=== PATIENT | female | born 1995 | race Caucasian/White ===

== ENCOUNTER 2020-05-08 20:04 | Inpatient (IN) | payer MEDICAID, SELFPAY ==
[2020-05-08 20:15] VITALS: BP 126/89; PULSE 80; RESP 16; TEMP 36.6; O2SAT 98
[2020-05-08] MEDS: OLANZapine 10 mg TABLET PO (21:24)
[2020-05-08 22:00] VITALS: BP 126/89; PULSE 80; RESP 16; TEMP 36.6
[2020-05-08 23:14] VITALS: BMI 10.8
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
[2020-05-09 06:00] VITALS: BP 117/72; PULSE 86; RESP 16; TEMP 36.6
[2020-05-09] MEDS: OLANZapine 10 mg TABLET PO (12:36)
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
[2020-05-09 14:00] VITALS: BP 85/51; PULSE 74; RESP 16; TEMP 37.2; O2SAT 96
[2020-05-09 14:43] LABS: Basophils # 0.1 10^3/uL (0.0-0.1); Basophils % 0.9 %; Eosinophils # 0.2 10^3/uL (0.0-0.8); Eosinophils % 2.2 %; Hematocrit 39.6 % (37.0-47.0); Hemoglobin 12.9 g/dL (11.5-15.3); Lymphocytes # 3.1 10^3/uL (0.8-4.8); Lymphocytes % 40.5 %; Mean Corpuscular HGB Conc 32.6 g/dL (30.0-36.0); Mean Corpuscular Hemoglobin 27.4 pg (28.0-34.0); Mean Corpuscular Volume 84.1 fL (81-99); Monocytes # 0.6 10^3/uL (0.2-0.9); Monocytes % 8.3 %; Neutrophils # 3.67 10^3/uL (1.8-7.7); Nucleated Red Blood Cells % 0 %; Platelet Count 442 10^3/cmm (130-400); Red Blood Count 4.71 10^6/uL (4.1-5.3); Red Cell Distribution Width 12.8 % (12.1-15.1); White Blood Count 7.7 10^3/uL (4.0-10.0)
[2020-05-09 15:20] LABS: Add Urine Microscopic? YES; Bilirubin Urine Neg (Negative); Blood Urine Neg (Negative); Glucose Urine UA Norm (Normal); Ketones Urine 1+ (Negative); Leukocyte Esterase Urine 2+ (Negative); Nitrate Urine Positive (Negative); Protein Urine Neg (Negative); Specific Gravity, Urine 1.025 (1.005-1.030); Urine Appearance Cloudy (CLEAR); Urine Color Yellow (Yellow); Urobilinogen Urine Norm (Negative); pH Urine 5 (5-7)
[2020-05-09 15:20] LABS: Folate Level 16.8 ng/mL (4.8-37.3)
[2020-05-09 15:21] LABS: Alanine Aminotransferase 55 U/L (0-33); Albumin Level 3.8 g/dL (3.5-5.2); Alkaline Phosphatase 67 IU/L (35-105); Aspartate Amino Transferase 78 U/L (0-32); Blood Urea Nitrogen 6 mg/dL (6-20); Carbon Dioxide 28 mmol/L (22-29); Chloride 102 mmol/L (98-107); Globulin 2.9 g/dL (1.3-4.6); Glomerular Filtration Rate 154.3 mL/min (90-130); Glucose 123 mg/dL (65-115); Osmolality Calculated 289 mOsm/kg (285-295); Sodium 140 mmol/L (136-145); Thyroid Stimulating Hormone 1.32 uIU/mL (0.27-4.20); Total Bilirubin 0.4 mg/dL (0.15-1.2); Total Protein 6.7 g/dL (6.6-8.7); Vitamin B12 1342 pg/mL (232-1245)
[2020-05-09 15:24] LABS: Bacteria Urine 3+ /hpf; Mucus Urine 1+ /hpf; Squamous Epithelial Cell Urine 0-4 /hpf (0-5); WBC Urine 40-55 /hpf (0-5)
[2020-05-09 15:25] LABS: Add Urine Culture? Yes
[2020-05-09 15:27] LABS: Erythrocyte Sedimentation Rate 11 mm/hr (0-15)
[2020-05-09] MEDS: OLANZapine 10 mg TABLET 20 MG PO (19:26)
[2020-05-09 19:42] VITALS: BP 101/68; PULSE 84; RESP 20; TEMP 36.7; O2SAT 95
[2020-05-10 06:00] VITALS: BP 97/61; PULSE 61; RESP 16; TEMP 37; O2SAT 97
[2020-05-10] MEDS: OLANZapine 10 mg TABLET PO (07:33)
[2020-05-10] MEDS: sulfamethoxazole-trimeth DS 160-800 mg Tablet 1 TAB PO ×2 (10:17→20:46)
--- NOTE | 2020-05-10 11:40 | P.PN_ITS ---
Subjective NPU Subjective: Interval history: Patient is much more engaged and interactive today during interview although frequently looking away and pausing requiring prompting Denies any current pentecostal themed delusions although when asked about her calling herself having she stated yes that she calls her self heaven but does not asked to be called this when referred to as Tracy throughout the interview per previous interview Denies any hallucinations, denies any current delusions but does recall some thoughts about thinking that she was going to be taken over by Satan Reports no mood symptoms, denies any depressed symptoms, denies any suicidal ideation, denies any irritability or anger and denies any homicidal ideation or thoughts about harming others Reports having a good appetite States that she slept well and feels rested Per nurse report, no interval behavioral disturbances, no episodes of physical agitation Mental Status Exam MSE Comments: Sitting up on her bed, tired appearing, appropriately dressed, interactive, requires some prompting for verbal responses otherwise good eye contact and participates in interview Psychomotor activity is neither increased nor decreased, no agitation Speech is low volume, normal rate, requires prompting to respond to questions, not pressured, fair articulation Okay, constricted affect, incongruent, not labile Alert, oriented to self and type of place, not to situation Memory and concentration are fair, requires occasional redirection to attend to interview Thought process, delayed, linear but brief Thought content, no reported delusions, does not appear to be attending to any internal stimuli and does not appear to be internally preoccupied, no suicidal or homicidal ideation Insight and judgment are limited Vitals/I&O/Wt Last Vital Signs Temp 98.6 F 05/10/20 06:00 Pulse 61 05/10/20 06:00 Resp 16 05/10/20 06:00 BP 97/61 05/10/20 06:00 Pulse Ox 97 05/10/20 06:00 Weight last 48 hrs Weight 29.484 kg Weight 29.484 kg Data NPU : 05/09/20 14:14 05/09/20 14:14 A&P Assessment and plan (1) Schizophrenia: Status: Acute Qualifiers: Schizophrenia type: unspecified Qualified Code(s): F20.9 - Schizophrenia, unspecified (2) Autistic disorder: Status: Acute Additional A&P Information Significantly improved mood and behavior today, improved psychotic symptoms, no stated delusions, does not appear to be attending to any internal stimuli, labs indicate UTI, no interval physical agitation or behavioral disturbances START Bactrim DS twice daily targeting UTI CONTINUE current medication, continue to monitor Attestations NPU Medical Necessity Statement*: Continues require psychiatric hospitalization for medication stabilization, coordination for safe discharge Coding Level of Care Code Acute Rotary Engraver for [facility] Diagnoses Schizophrenia F20.9 Schizophrenia type: unspecified Autistic disorder F84.0
[2020-05-10 14:00] VITALS: BP 100/62; PULSE 100; RESP 20; TEMP 36.3; O2SAT 96
[2020-05-10] MEDS: OLANZapine 10 mg TABLET 20 MG PO (20:46)
[2020-05-10 22:00] VITALS: BP 103/65; PULSE 86; RESP 16; TEMP 36.8; O2SAT 97
[2020-05-11 06:00] VITALS: BP 100/62; PULSE 75; RESP 16; TEMP 36.9; O2SAT 95
[2020-05-11] MEDS: OLANZapine 10 mg TABLET PO (07:44)
[2020-05-11] MEDS: sulfamethoxazole-trimeth DS 160-800 mg Tablet 1 TAB PO (07:44)
--- NOTE | 2020-05-11 09:51 | P.DS_ITS ---
Diagnoses at Discharge Discharge Diagnosis (1) Schizophrenia: Status: Acute Qualifiers: Schizophrenia type: unspecified Qualified Code(s): F20.9 - Schizophrenia, unspecified (2) Autistic disorder: Status: Acute Reason for Visit Reason for Visit: I am being taken over by [facility] 24 year old female with history of severe, autistic spectrum disorder, unclear psychiatric history with ongoing psychotic symptoms and worsening delusions with taoism themes. Patient continued to demonstrate psychotic signs and symptoms at the time of initial evaluation to include attending to internal stimuli and voicing taoism themed delusions although she did not demonstrate any physical agitation or combative behavior. Risperdal was discontinued from her recent psychiatric hospitalization and she was started on olanzapine 10 mg daily and 20 mg at bedtime with good effect and no report of any medication side effects. Patient quickly reconstituted with significantly diminished delusions after first dose as well as more organization in her speech and behavior with only residual appearance of attending to internal stimuli which resolved over another couple of doses. Patient denied any mood symptoms, denies any depressive symptoms and appears to be excited about discharge and denies any taoism themed delusions nor any perceptual disturbances. Patient tolerated medication changes well with no reports of any medication side effects. Patient participated in unit milieu with no reports of any behavioral disturbances. Patient was not suicidal or psychotic at the time of discharge and did not appear to pose an imminent threat of harm to self or others. Low to moderate risk of harm to self or others given patient's history of a thought disorder compounded by severe autistic disorder which ultimately elevates her risk at times given the potential for unexpected, impulsive behavior although patient is currently denying any suicidal ideation and currently denying any perceptual disturbances or delusions. Risk mitigation included psychiatric hospitalization for medication stabilization as well as coordination for post discharge care. Patient acknowledged the need to be compliant with her medication although this will likely be highly dependent on her caregiver as well as frequent follow-up for medication management as well as behavioral redirection. Mental Status Exam MSE Comments: Sitting on a bench near the nurses station, appropriately groomed and dressed, calm, cooperative, interactive, good eye contact Psychomotor activity is neither increased nor decreased, no agitation Speech is low volume, normal rate, not pressured, fair articulation I feel good, constricted affect, not labile Alert, oriented to self and type of place, not to situation Memory and concentration are fair per interview Thought process, delayed, linear but brief Thought content, no reported delusions, does not appear to be attending to any internal stimuli and does not appear to be internally preoccupied, no suicidal or homicidal ideation Insight and judgment are limited Discharge Data Data Completed and Pending: Pending at discharge Category Date Time Status Urine Culture [facility] 05/09/20 14:40 Results Vitals: Last Vital Signs Temp 98.4 F 05/11/20 06:00 Pulse 75 05/11/20 06:00 Resp 16 05/11/20 06:00 BP 100/62 05/11/20 06:00 Pulse Ox 95 05/11/20 06:00 Discharge Plan Discharge Patient Disposition: Home Condition: Stable Prescriptions: New olanzapine 10 mg Tablet 20 mg PO BEDTIME Qty: 30 RF: 0 olanzapine 10 mg Tablet 10 mg PO DAILY 30 Days RF: 0 sulfamethoxazole-trimethoprim 800-160 mg Tablet 1 tab PO 0900,2100 Qty: 20 RF: 0 Discontinued risperidone tablet 0.5 mg PO TID RF: 0 Discharge Orders: Discharge Order (Routine); Ordered 05/11/20 Ordered By: Nurys Alexander Referrals: [facility] [place] [facility] [Outside] (Complete intake paperwork and return to [facility]. This will allow her to be scheduled for an assessment to get outpatient services and an outpatient psychiatrist to continue her medications.) Discharge Diet: Regular Discharge Activity: Resume usual activity Discharge Attestations NPU Time Spent in Discharge Care*: greater than 30 min Status at Discharge: Cognitive status at discharge: moderately impaired cognition , Behavioral status at discharge: cooperative , Functional status at discharge: independent ambulation Overall status at discharge: patient is back to baseline Coding Level of Care Code Acute Sharepoint Consultant for [facility] Fwd Diagnoses Schizophrenia F20.9 Schizophrenia type: unspecified Autistic disorder F84.0
[2020-05-11 10:13] VITALS: BP 100/62; PULSE 75; RESP 16; TEMP 36.9; O2SAT 95
== END 2020-05-11 17:17 | disposition home or self-care (01) | DRG 885 ==
PROVIDERS: Admitting Provider Psychiatry & Neurology Psychiatry; Visit Provider Psychiatry & Neurology Psychiatry
DX: F20.9 Schizophrenia, unspecified (principal); F84.0 Autistic disorder
CPT/HCPCS: 36415; 80053; 81001; 82607; 82746; 84443; 85025; 85651; 87077; 87086; 87186

== ENCOUNTER 2020-11-09 13:20 | Inpatient (IN) | payer MEDICAID, SELFPAY ==
[2020-11-09 13:06] VITALS: BMI 26.4
[2020-11-09 14:00] VITALS: BP 114/78; PULSE 63; RESP 16; TEMP 36.9; O2SAT 99
[2020-11-09 20:55] VITALS: BP 107/72; PULSE 104; RESP 20; TEMP 37.1; O2SAT 98
[2020-11-10 06:00] VITALS: BP 93/60; PULSE 87; RESP 17; TEMP 36.7; O2SAT 99
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
--- NOTE | 2020-11-10 12:36 | NPU.GN ---
[facility] Unit Group Topic:Coping Skills General Mood of Group:Refused group.
[2020-11-10 14:00] VITALS: BP 110/60; PULSE 91; RESP 18; TEMP 36.3; O2SAT 98
[2020-11-10 20:12] VITALS: BP 116/76; PULSE 76; RESP 18; TEMP 37.1; O2SAT 98
[2020-11-11 06:00] VITALS: RESP 16
--- NOTE | 2020-11-11 06:38 | PC.NURSE ---
pt finally sleeping will collect vitals later/respirations were observed/alexy
[2020-11-11] MEDS: ARIPiprazole 10 mg Tablet PO (08:03)
[2020-11-11] MEDS: fluoxetine 20 mg Capsule PO (08:03)
[2020-11-11] MEDS: fluticasone nasal spray 16gm Btl 1 SPRAY INTRANASAL (08:03)
[2020-11-11] MEDS: OLANZapine 10 mg TABLET 20 MG PO ×2 (08:03→17:30)
[2020-11-11 14:00] VITALS: RESP 16; TEMP 36.4
[2020-11-11] MEDS: paliperidone palmitate 156 mg Syringe IM (14:21)
--- NOTE | 2020-11-11 17:37 | PM.NPN ---
Subjective NPU Subjective: Interval history: Patient presents today reporting that she is doing okay. She had her first dose of the medication and reports that she did not have any side effects to it. She denies any problems with the discontinuation of the Risperdal. She wonders if the medication is making her a little sleepy. We discussed the possibility of changing the dosing to nighttime if she still felt that way tomorrow. We discussed the fact that we are continuing to work on getting her placement and working with her mom about whether or not she can come home and there are places that we have contacted but no takers as of yet. Mental Status Exam MSE Comments: This is a well-nourished, well-developed, white female, in hospital scrubs with adequate grooming and eye contact. No abnormal movements. Cooperative with exam in no acute distress. Speech was slightly decreased rate and volume, and very child-like. Mood described as tired; affect congruent. Thought process, organized. Thought content: patient denied any suicidal or homicidal ideation, there were no delusions reported or noted, patient denied any auditory or visual hallucinations. Attention, concentration, and memory appear intact but were not formally tested. She is alert and oriented times three. Insight and judgment are limited, impulse control limited, intellectual ability limited to impaired. Vitals/I&O/Wt Last Vital Signs Temp 98.8 F 11/11/20 22:00 Pulse 75 11/11/20 22:00 Resp 18 11/11/20 22:00 BP 96/59 11/11/20 22:00 Pulse Ox 98 11/11/20 22:00 A&P Additional A&P Information (1) Autistic disorder: (2) Schizophrenia: (3) Intellectual disability: This is a 25-year-old, white female, with a long history of intellectual disability, trauma, and mental health treatment, who presents reportedly off medication with not being the best historian due to her cognitive limitation, who endorses being open to restarting medication and a plan to ultimately discontinue the Risperdal and start Abilify. RECOMMENDATION AND PLAN: 1. Continue current medication. 2. Encourage individual, group, and milieu therapy. 3. Continue q-15 minute checks for safety. . Involuntary Hold Information 96 Hour Hold: 96 Hour Involuntary Admission: No Attestations NPU Medical Necessity Statement*: Inpatient hospitalization is medically necessary and the clinically appropriate intervention, at this time. We will monitor medications and make changes as indicated. Likely length of stay is 3-5 days. Coding Level of Care Code Acute Technical Specialist for [facility]
[2020-11-11 22:00] VITALS: BP 96/59; PULSE 75; RESP 18; TEMP 37.1; O2SAT 98
[2020-11-12 06:00] VITALS: RESP 19
[2020-11-12] MEDS: fluoxetine 20 mg Capsule PO (08:28)
[2020-11-12] MEDS: OLANZapine 10 mg TABLET 20 MG PO ×2 (08:28→17:15)
[2020-11-12] MEDS: ARIPiprazole 10 mg Tablet PO (08:28)
--- NOTE | 2020-11-12 09:35 | PC.NURSE ---
Patient remains incontinent and has to be reminded several times to change her depends.
[2020-11-12] MEDS: fluticasone nasal spray 16gm Btl 1 SPRAY INTRANASAL (10:08)
--- NOTE | 2020-11-12 12:57 | PM.NPN ---
Subjective NPU Subjective: Interval history: Patient presents today reporting that she feels like the medication might be helping but she is still feeling really tired. We discussed the risk benefits and alternatives of changing the Abilify to 10 mg p.o. nightly and she understood and agreed to proceed as is documented in this note. She was very inquisitive about the situation with her mother and going home. We discussed again that we do in fact have some feelers out there. We had one refusal but one that is still quite active we will try to pursue this 1 and avoid question of home but we have also discussed that were in conversation with mom that it may be that in the next couple days as she gets well that she would leave and go home while she is awaiting the opportunities that we pursue. Mental Status Exam MSE Comments: This is a well-nourished, well-developed, white female, in hospital scrubs with adequate grooming and eye contact. No abnormal movements. Cooperative with exam in no acute distress. Speech was slightly decreased rate and volume, and very child-like. Mood described as still sleepy; affect congruent. Thought process, organized. Thought content: patient denied any suicidal or homicidal ideation, there were no delusions reported or noted, patient denied any auditory or visual hallucinations. Attention, concentration, and memory appear intact but were not formally tested. She is alert and oriented times three. Insight and judgment are limited, impulse control limited, intellectual ability limited to impaired. Vitals/I&O/Wt Last Vital Signs Temp 98.8 F 11/11/20 22:00 Pulse 75 11/11/20 22:00 Resp 18 11/11/20 22:00 BP 96/59 11/11/20 22:00 Pulse Ox 98 11/11/20 22:00 A&P Additional A&P Information (1) Autistic disorder: (2) Schizophrenia: (3) Intellectual disability: This is a 25-year-old, white female, with a long history of intellectual disability, trauma, and mental health treatment, who presents reportedly off medication with not being the best historian due to her cognitive limitation, who endorses being open to restarting medication and a plan to ultimately discontinue the Risperdal and start Abilify. RECOMMENDATION AND PLAN: 1. Continue current medication. 2. Encourage individual, group, and milieu therapy. 3. Continue q-15 minute checks for safety. 4. We will work with treatment team for safe discharge plan and location. Involuntary Hold Information 96 Hour Hold: 96 Hour Involuntary Admission: No Attestations NPU Medical Necessity Statement*: Inpatient hospitalization is medically necessary and the clinically appropriate intervention, at this time. We will monitor medications and make changes as indicated. Likely length of stay is 2-4 days. Coding Level of Care Code Acute Materials Scientist for [facility]
[2020-11-12 14:00] VITALS: BP 99/60; PULSE 118; RESP 18; TEMP 36.6; O2SAT 98
[2020-11-12 20:21] VITALS: BP 109/72; PULSE 90; RESP 18; TEMP 36.9; O2SAT 97
[2020-11-13 06:00] VITALS: BP 109/72; PULSE 90; RESP 18; TEMP 36.9; O2SAT 97
[2020-11-13] MEDS: fluoxetine 20 mg Capsule PO (07:56)
[2020-11-13] MEDS: OLANZapine 10 mg TABLET 20 MG PO ×2 (07:56→18:28)
[2020-11-13] MEDS: fluticasone nasal spray 16gm Btl 1 SPRAY INTRANASAL (09:53)
[2020-11-13 14:00] VITALS: BP 109/67; PULSE 100; RESP 17; TEMP 36.5; O2SAT 99
--- NOTE | 2020-11-13 14:01 | PM.NDC ---
Diagnoses at Discharge Discharge Diagnosis (1) Autistic disorder: Status: Acute (2) Schizophrenia: Status: Acute Qualifiers: Schizophrenia type: unspecified Qualified Code(s): F20.9 - Schizophrenia, unspecified (3) Intellectual disability: Status: Acute Reason for Visit Reason for Visit: hallucination Brief History: History of Present Illness Tracy Robledo is a 25 year old female who presented to the outside hospital reporting hallucinations. There was a conflict in the home with her foster mother of unclear etiology at the outpatient hospital. There was reportedly ?out of control behavior? in the home making her foster parents not feel safe, having her inside the home. She presents today reporting that she this is her probably fifth inpatient hospitalization. She denies outpatient services and she denied medications however, it appears that she is behind in her Invega injection and is unclear about collateral information if she has in fact stopped her medications. She denies cigarettes, alcohol, marijuana, or any other illicit drugs. She has never been to rehab, never had a DUI. She denies any history of suicide attempts. When asked what the commotion was in her home, she reports that she was ?acting psycho.? She reports she was in her house, and she was running around naked. She gave no clear reason for why she was running around naked. She was not mad and essentially answered no to all the reasons this automotive service writer could come up with for why she might have done that. Eventually she reported that she was feeling hot, and she wanted to cool off, but we both agreed that the answer to that would not be running around the house naked. She reports she has been off her medications, and we discussed the different medications that we had notation of her having. She reports that she is on Risperdal, but she does not like how that works and makes her feel. We discussed the risks, benefits, and alternatives of continuing most of the medications or restarting them and initiating Abilify in the morning tomorrow, and she understood and agreed to proceed as is documented in this note. PSYCHIATRIC HISTORY: As above. SUBSTANCE ABUSE HISTORY: As above. FAMILY HISTORY: She reports she is adopted, and she has limited memory of her biological family, but she denied any mental health issues on either side of the family that she is aware of but did endorse addiction likely on both sides of the family. She is unaware of any suicide attempts or completions. DEVELOPMENTAL HISTORY: She denied any known issues with her or delivery, and reports she learned to walk and talk and met her developmental milestones on time, but this is questionable. She does endorse that she did require speech therapy, learning support, emotional support, and special education classes once she entered school and throughout her schooling. PSYCHOSOCIAL HISTORY: She reports her parents were not together when she was born and that she is the only product of that union. She believes that she knows that she has siblings out there somewhere, but she is not sure how many, and which are attributed to which parent. She reports that she was taken away from her family at eleven months. She denies knowledge of her childhood prior to her adoption. She denies emotional, physical, or sexual abuse, but then seemed unsure about the sexual abuse question. She graduated from high school. She essentially identified being asexual and denied having any real relationships, but then said that she use to have a boyfriend, but it was very short-lived. She has never been , she has never had children, she has never been in the , and she endorses believing in God. 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 She currently livers in the house with her foster mother, a roommate, and her sister she reports, but she seemed somewhat confused as to whether or not that was a biological sibling or not. LEGAL HISTORY: Denied. MEDICAL HISTORY: She denies any specific issues. Hospital Course Hospital Course She slowly acclimated to the individual, group and milieu therapies provided. We discontinued her Risperdal and started her on Abilify which she endorsed improvement. She was limited in her intellectual engagement due to longstanding intellectual disability and there are some challenges and conflicts in the home with making unclear whether her presentation represents true issues with her symptom cluster or a reflection on volume or conflict in the home. She had mild improvement and was able to contract for safety prior to discharge. At the outside hospital, patient had routine laboratory studies which were within normal limits except for few outliers. Additionally there was a general medical evaluation which was also within normal limits and revealed no new acute processes. Discharge Summary: At the time of discharge, she denied credible psychosis or lethality. Mood and anxiety were well managed. Patient endorsed a plan to follow-up with the aftercare recommendations of the treatment team. Patient was evaluated and deemed to be absent credible lethality, and had achieved the maximum benefit from an inpatient hospitalization, so was discharged. Involuntary Hold Information 96 Hour Hold: 96 Hour Involuntary Admission: No Mental Status Exam MSE Comments: This is a well-nourished, well-developed, white female, in hospital scrubs with adequate grooming and eye contact. No abnormal movements. Cooperative with exam in no acute distress. Speech was slightly decreased rate and volume, and very child-like. Mood described as okay; affect congruent. Thought process, organized. Thought content: patient denied any suicidal or homicidal ideation, there were no delusions reported or noted, patient denied any auditory or visual hallucinations. Attention, concentration, and memory appear intact but were not formally tested. She is alert and oriented times three. Insight and judgment are limited, impulse control limited, intellectual ability limited to impaired. Discharge Data Vitals: Last Vital Signs Temp 98.4 F 11/13/20 06:00 Pulse 90 11/13/20 06:00 Resp 18 11/13/20 06:00 BP 109/72 11/13/20 06:00 Pulse Ox 97 11/13/20 06:00 Discharge Plan Discharge Patient Disposition: Home Condition: Stable Prescriptions: New aripiprazole 10 mg Tablet 10 mg PO BEDTIME 30 Days Qty: 30 RF: 1 Continued fluoxetine [Prozac] 20 mg capsule 20 mg PO DAILY RF: 0 fluticasone propionate 50 mcg/actuation spray,suspension 1 spray INTRANASAL DAILY RF: 0 olanzapine 10 mg tablet 20 mg PO BID RF: 0 Changed Invega Sustenna 156 mg/mL syringe 156 mg IM DIRECTED 30 Days Qty: 1 RF: 1 Discontinued risperidone [Risperdal] 1 mg tablet 1 mg PO BID RF: 0 Discharge Orders: Discharge Order (Routine); Ordered 11/13/20 Ordered By: Lucius Hamm Referrals: [facility] [Other] - 11/20/20 11:00 am (Invega injection appointment with a nurse on 11/20/20 @ 11am. Please be sure to bring Invega prescription to this appointment. You will need to establish care with a medication provider to follow up with Invega injections. After your appointment with [facility] on 11/30/20 you will likely be set up with a medication provider that will be able to follow up. ) Sima Cano LPC [Therapist] - 11/17/20 12:00 pm (Therapy appointment with Sima Cano on 11/17/20 @ 12:00pm at the [facility] office, address: [address] [facility] [address]) Johanny Flood MD [[place]] - 11/30/20 10:00 am (Psych eval with Dr. Flood on 11/30/20 @ 10:00am at the [facility] office at [address] [address]) Discharge Diet: Regular Discharge Activity: Resume usual activity Patient Instructions: Aripiprazole (By mouth), Opioid Safety Discharge Attestations NPU Time Spent in Discharge Care*: less than 30 min Specific Discharge Activities: Specific discharge activities: educating patient, discussing with case loader operator/social workers/dc planners, documenting/other paperwork and evaluating patient/reviewing data Status at Discharge: Cognitive status at discharge: moderately impaired cognition, Behavioral status at discharge: cooperative, Coding Level of Care Code Acute [facility] DC note Diagnoses Autistic disorder F84.0 Schizophrenia F20.9 Schizophrenia type: unspecified Intellectual disability F79
[2020-11-13 14:04] VITALS: BP 109/72; PULSE 90; RESP 18; TEMP 36.9; O2SAT 97
== END 2020-11-13 18:56 | disposition home or self-care (01) | DRG 885 ==
PROVIDERS: Admitting Provider Psychiatry & Neurology Psychiatry; Visit Provider Psychiatry & Neurology Psychiatry
DX: F20.9 Schizophrenia, unspecified (principal); F84.0 Autistic disorder; F79 Unspecified intellectual disabilities; Z81.4 Family history of other substance abuse and dependence
CPT/HCPCS: 96372; 97150; 97165

== ENCOUNTER 2020-11-18 19:09 | Inpatient (IN) | payer MEDICAID, SELFPAY ==
[2020-11-18 19:15] VITALS: BP 110/73; PULSE 91; RESP 18; TEMP 36.8; O2SAT 97; BMI 24.0
--- NOTE | 2020-11-18 19:55 | W.ED.AMS ---
Documented by User: NELIA Andrade 11/18/20 21:25 HPI - Altered Mental Status General: Chief Complaint: Altered Mental Status Stated Complaint: MHE Time Seen by Provider: 11/18/20 19:32 History of Present Illness: HPI narrative: Patient is a 25-year-old female comes to the ED for mental health evaluation. Patient was brought in via EMS. Patient has a past medical history of intellectual disability, schizophrenia and autistic disorder. Patient ran away from home and mother is concerned she is having an episode of acute psychosis. Patient has not been taking her and mother told the nursing staff that patient has been talking about hearing the devil talking to her. Patient told me she has been hearing Satan telling her that she needs to run. Patient denies any other medical complaints. Denies any fever, chills, upper respiratory symptoms, abdominal pain, chest pain, nausea/vomiting, bladder or bowel symptoms. Associated symptoms: Reports auditory hallucinations (Hears Satan talking to her.); Deny visual hallucinations, homicidal ideation or suicidal ideation Review of Systems Const: Denies: fever(s), chills or fatigue Eyes: Denies: change in vision or eye discomfort ENMT: Denies: throat pain, odynophagia, nasal discharge or nasal congestion Card: Denies: chest pain, palpitations, edema, swelling of feet/ankles, dyspnea on exertion or orthopnea Resp: Denies: dyspnea, productive cough or non-productive cough GI: Denies: abdominal pain, nausea, vomiting, diarrhea, constipation or hematochezia : Denies: flank pain, dysuria or hematuria Musc: Denies: neck pain, back pain or extremity swelling Skin/Breast: Denies: rash or new lesions Neuro: Denies: headache(s), numbness in extremities or weakness in extremities Psych: Reports: auditory hallucinations (Hears Satan talking to her.); Denies: anxiety, visual hallucinations, suicidal ideation or homicidal ideation [facility] ED PFSH: Medical History Psychiatric care Physical Exam Const: COMMON NORMALS: no acute distress, patient oriented x3, healthy appearing and alert GENERAL APPEARANCE: cooperative and comfortable HENMT: COMMON NORMALS: normocephalic HEAD & SCALP: normocephalic MOUTH: Normal oral and palatal mucosa present THROAT: posterior oropharynx normal and uvula midline Neck/C-Spine: COMMON NORMALS: supple GENERAL: Yes normal visual inspection Resp: COMMON NORMALS: normal respiratory effort, No retractions, No use of accessory muscles and clear to auscultation bilaterally AUSCULTATION: clear to auscultation bilaterally Cardio: COMMON NORMALS: regular rate, regular rhythm, S1 normal heart sound present, S2 normal heart sound present, No gallops present (Cardio), No clicks present (Cardio), No murmurs present (Cardio) and Peripheral pulses 2+ throughout RATE: regular rate RHYTHM: regular rhythm HEART SOUNDS: S1 normal heart sound present and S2 normal heart sound present PERIPHERAL PULSES: Peripheral pulses 2+ throughout GI: COMMON NORMALS: Normal to inspection, nondistended, normoactive bowel sounds present, Soft to palpation, non-tender and no masses PALPATION: Yes Soft to palpation : COMMON NORMALS: Yes no CVA tenderness BLADDER/KIDNEY EXAM: Yes no CVA tenderness Back/Pelvis: COMMON NORMALS: no CVA tenderness Extremity: COMMON NORMALS: normal to inspection Neuro: COMMON NORMALS: patient oriented x3 and moves all extremities SENSORIUM/ORIENTATION: Yes alert Psych: COMMON NORMALS: Normal thought process present and speech normal APPEARANCE: Yes grossly normal ATTITUDE: Yes calm ACTIVITY/MOTOR BEHAVIOR: Yes Avoids eye contact (attititude/behavior) SPEECH: Yes normal speech MOOD & AFFECT: Yes Flat affect present THOUGHT PROCESS: Normal thought process present THOUGHT CONTENT: No Suicidality present, No Homicidality present and Yes Hallucination(s) present auditory (Kar is talking to her- Telling her to run.) ATTENTION/CONCENTRATION: Yes attention grossly intact and Yes concentration grossly intact MEMORY/COGNITION: Yes memory grossly intact and Yes cognition grossly intact INSIGHT: Limited insight present (Psych) JUDGEMENT: Limited judgement present (Psych) Skin: GENERAL SKIN EXAM: dry skin Course Consultations: Consultation #1: I contacted Dr. Nicole and told about patient case. He agreed to have patient admitted to the NPU. Time: 21:10 Vital Signs: Vital signs: Vital Signs Temperature 97.9 F 11/19/20 22:00 Pulse Rate 100 11/19/20 22:00 Respiratory Rate 20 H 11/19/20 22:00 Blood Pressure 100/64 11/19/20 22:00 Pulse Oximetry 98 11/19/20 22:00 MDM - Altered Mental Status MDM Narrative: Medical decision making narrative: Patient is a 25-year-old female comes to the ED for psych evaluation. She was brought in via EMS after she ran away from home. Mother was concerned the patient had not been taking her medications and been having auditory hallucinations about hearing Satan talking to her. Vitals are stable patient medically cleared for admission to the NPU. Labs are unremarkable. I contacted Dr. Nicole and told about patient case and he agreed to have patient admitted to the NPU. Dr. Vargas placed the admitting orders. Lab Data: Attestation: I reviewed the patient's lab results. Labs: Lab Results 11/18/20 11/18/20 11/18/20 19:10 19:10 19:59 WBC 13.3 10^3/uL H 10 ^3/uL (4.0-10.0) RBC 4.89 10^6/uL 10^6 /uL (4.1-5.3) Hgb 13.7 g/dL g/dL (11.5-15.3) Hct 44.2 % % (37.0-47.0) MCV 90.4 fl fl (81-99) MCH 28.0 pg pg (28.0-34.0) MCHC 31.0 g/dL g/dL (30.0-36.0) RDW 13.2 % % (12.1-15.1) Plt Count 340 10^3/cmm 10^3 /cmm (130-400) MPV 9.4 fL fL (7.4-10.4) Neut % (Auto) 63.0 % % Lymph % (Auto) 27.3 % % [place] % (Auto) 6.7 % % Eos % (Auto) 2.0 % % Baso % (Auto) 0.6 % % Neut # (Auto) 8.39 10^3/uL H 10 ^3/uL (1.8-7.7) Lymph # (Auto) 3.6 10^3/uL 10^3/ uL (0.8-4.8) [place] # (Auto) 0.9 10^3/uL 10^3/ uL (0.2-0.9) Eos # (Auto) 0.3 10^3/uL 10^3/ uL (0.0-0.8) Baso # (Auto) 0.1 10^3/uL 10^3/ uL (0.0-0.1) Nucleated RBC % (a uto) 0 % % Nucleated RBCs # 0.0 /100WBC /100W BC Sodium Potassium Chloride Carbon Dioxide Anion Gap BUN Creatinine GFR Calculation Glucose Calculated Osmolal ity Calcium Total Bilirubin AST ALT Alkaline Phosphata se Total Protein Albumin Globulin HCG, Qual Urine Color Straw (Yellow) Urine Appearance Clear (CLEAR) Urine pH 5 (5-7) Ur Specific Gravit y 1.005 (1.005-1.030) Urine Protein Neg (Negative) Urine Glucose (UA) Norm (Normal) Urine Ketones Negative (Negative) Urine Blood Neg (Negative) Urine Nitrate Negative (Negative) Urine Bilirubin Neg (Negative) Urine Urobilinogen Norm mg/dL mg/dL (Negative) Ur Leukocyte Areli ase Negative (Negative) Salicylates Urine Opiates Scre en Negative ng/mL ng /mL (Negative) Acetaminophen Ur Barbiturates Sc reen Negative ng/mL ng /mL (Negative) Ur Phencyclidine S crn Negative ng/mL ng /mL (Negative) Ur Amphetamines Sc reen Negative ng/mL ng /mL (Negative) U Benzodiazepines Scrn Negative ng/mL ng /mL (Negative) Urine Cocaine Scre en Negative ng/mL ng /mL (Negative) U Marijuana (THC) Screen Negative ng/mL ng /mL (Negative) Ethyl Alcohol 11/18/20 11/18/20 19:59 19:59 WBC RBC Hgb Hct MCV MCH MCHC RDW Plt Count MPV Neut % (Auto) Lymph % (Auto) [place] % (Auto) Eos % (Auto) Baso % (Auto) Neut # (Auto) Lymph # (Auto) [place] # (Auto) Eos # (Auto) Baso # (Auto) Nucleated RBC % (a uto) Nucleated RBCs # Sodium 137 mmol/L mmol/L (136-145) Potassium 3.9 mmol/L mmol/L (3.5-5.1) Chloride 101 mmol/L mmol/L (98-107) Carbon Dioxide 25 mmol/L mmol/L (22-29) Anion Gap 14.9 (5-19) BUN 10 mg/dL mg/dL (6-20) Creatinine 0.4 mg/dL L mg/dL (0.5-0.9) GFR Calculation 197.8 mL/min H mL /min (90-130) Glucose 82 mg/dL mg/dL (65-115) Calculated Osmolal ity 282 mOsm/kg L mOs m/kg (285-295) Calcium 9.2 mg/dL mg/dL (8.5-10.5) Total Bilirubin 0.2 mg/dL mg/dL (0.15-1.2) AST 16 U/L U/L (0-32) ALT 17 U/L U/L (0-33) Alkaline Phosphata se 82 IU/L IU/L (35-105) Total Protein 7.4 g/dL g/dL (6.6-8.7) Albumin 4.3 g/dL g/dL (3.5-5.2) Globulin 3.1 g/dL g/dL (1.3-4.6) HCG, Qual Negative (Negative) Urine Color Urine Appearance Urine pH Ur Specific Gravit y Urine Protein Urine Glucose (UA) Urine Ketones Urine Blood Urine Nitrate Urine Bilirubin Urine Urobilinogen Ur Leukocyte Areli ase Salicylates < 0.3 mg/dL L mg/ dL (3-10) Urine Opiates Scre en Acetaminophen < 5.0 ug/mL L ug/ mL (10-30) Ur Barbiturates Sc reen Ur Phencyclidine S crn Ur Amphetamines Sc reen U Benzodiazepines Scrn Urine Cocaine Scre en U Marijuana (THC) Screen Ethyl Alcohol < 10 mg/dL mg/dL (0-10) Discharge Plan Discharge Patient Disposition: Admitted As Inpatient Admit Provider: Giancarlo Nicole Coding Level of Care Code ED [employer] for [employer] Fwd Exam Comprehensive Documented by User: Staci Vargas MD 11/20/20 01:31 HPI - Altered Mental Status General: Chief Complaint: Altered Mental Status Stated Complaint: MHE Time Seen by Provider: 11/18/20 19:32 PFSH ED PFSH: Medical History Psychiatric care Course Vital Signs: Vital signs: Vital Signs Temperature 97.9 F 11/19/20 22:00 Pulse Rate 100 11/19/20 22:00 Respiratory Rate 20 H 11/19/20 22:00 Blood Pressure 100/64 11/19/20 22:00 Pulse Oximetry 98 11/19/20 22:00 MDM - Altered Mental Status Lab Data: Labs: Lab Results 11/18/20 11/18/20 11/18/20 19:10 19:10 19:59 WBC 13.3 10^3/uL H 10 ^3/uL (4.0-10.0) RBC 4.89 10^6/uL 10^6 /uL (4.1-5.3) Hgb 13.7 g/dL g/dL (11.5-15.3) Hct 44.2 % % (37.0-47.0) MCV 90.4 fl fl (81-99) MCH 28.0 pg pg (28.0-34.0) MCHC 31.0 g/dL g/dL (30.0-36.0) RDW 13.2 % % (12.1-15.1) Plt Count 340 10^3/cmm 10^3 /cmm (130-400) MPV 9.4 fL fL (7.4-10.4) Neut % (Auto) 63.0 % % Lymph % (Auto) 27.3 % % [place] % (Auto) 6.7 % % Eos % (Auto) 2.0 % % Baso % (Auto) 0.6 % % Neut # (Auto) 8.39 10^3/uL H 10 ^3/uL (1.8-7.7) Lymph # (Auto) 3.6 10^3/uL 10^3/ uL (0.8-4.8) [place] # (Auto) 0.9 10^3/uL 10^3/ uL (0.2-0.9) Eos # (Auto) 0.3 10^3/uL 10^3/ uL (0.0-0.8) Baso # (Auto) 0.1 10^3/uL 10^3/ uL (0.0-0.1) Nucleated RBC % (a uto) 0 % % Nucleated RBCs # 0.0 /100WBC /100W BC Sodium Potassium Chloride Carbon Dioxide Anion Gap BUN Creatinine GFR Calculation Glucose Calculated Osmolal ity Calcium Total Bilirubin AST ALT Alkaline Phosphata se Total Protein Albumin Globulin HCG, Qual Urine Color Straw (Yellow) Urine Appearance Clear (CLEAR) Urine pH 5 (5-7) Ur Specific Gravit y 1.005 (1.005-1.030) Urine Protein Neg (Negative) Urine Glucose (UA) Norm (Normal) Urine Ketones Negative (Negative) Urine Blood Neg (Negative) Urine Nitrate Negative (Negative) Urine Bilirubin Neg (Negative) Urine Urobilinogen Norm mg/dL mg/dL (Negative) Ur Leukocyte Areli ase Negative (Negative) Salicylates Urine Opiates Scre en Negative ng/mL ng /mL (Negative) Acetaminophen Ur Barbiturates Sc reen Negative ng/mL ng /mL (Negative) Ur Phencyclidine S crn Negative ng/mL ng /mL (Negative) Ur Amphetamines Sc reen Negative ng/mL ng /mL (Negative) U Benzodiazepines Scrn Negative ng/mL ng /mL (Negative) Urine Cocaine Scre en Negative ng/mL ng /mL (Negative) U Marijuana (THC) Screen Negative ng/mL ng /mL (Negative) Ethyl Alcohol 11/18/20 11/18/20 19:59 19:59 WBC RBC Hgb Hct MCV MCH MCHC RDW Plt Count MPV Neut % (Auto) Lymph % (Auto) [place] % (Auto) Eos % (Auto) Baso % (Auto) Neut # (Auto) Lymph # (Auto) [place] # (Auto) Eos # (Auto) Baso # (Auto) Nucleated RBC % (a uto) Nucleated RBCs # Sodium 137 mmol/L mmol/L (136-145) Potassium 3.9 mmol/L mmol/L (3.5-5.1) Chloride 101 mmol/L mmol/L (98-107) Carbon Dioxide 25 mmol/L mmol/L (22-29) Anion Gap 14.9 (5-19) BUN 10 mg/dL mg/dL (6-20) Creatinine 0.4 mg/dL L mg/dL (0.5-0.9) GFR Calculation 197.8 mL/min H mL /min (90-130) Glucose 82 mg/dL mg/dL (65-115) Calculated Osmolal ity 282 mOsm/kg L mOs m/kg (285-295) Calcium 9.2 mg/dL mg/dL (8.5-10.5) Total Bilirubin 0.2 mg/dL mg/dL (0.15-1.2) AST 16 U/L U/L (0-32) ALT 17 U/L U/L (0-33) Alkaline Phosphata se 82 IU/L IU/L (35-105) Total Protein 7.4 g/dL g/dL (6.6-8.7) Albumin 4.3 g/dL g/dL (3.5-5.2) Globulin 3.1 g/dL g/dL (1.3-4.6) HCG, Qual Negative (Negative) Urine Color Urine Appearance Urine pH Ur Specific Gravit y Urine Protein Urine Glucose (UA) Urine Ketones Urine Blood Urine Nitrate Urine Bilirubin Urine Urobilinogen Ur Leukocyte Areli ase Salicylates < 0.3 mg/dL L mg/ dL (3-10) Urine Opiates Scre en Acetaminophen < 5.0 ug/mL L ug/ mL (10-30) Ur Barbiturates Sc reen Ur Phencyclidine S crn Ur Amphetamines Sc reen U Benzodiazepines Scrn Urine Cocaine Scre en U Marijuana (THC) Screen Ethyl Alcohol < 10 mg/dL mg/dL (0-10) Discharge Plan Discharge Patient Disposition: Admitted As Inpatient Admit Provider: Giancarlo Nicole Coding Level of Care Code ED [employer] for [employer] Fwd Exam Comprehensive
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
[2020-11-18 20:00] VITALS: BP 116/73; PULSE 76; RESP 18; O2SAT 98
[2020-11-18 20:08] LABS: Add Urine Microscopic? NO; Charge for UA Resulting for Rev
[2020-11-18 20:09] LABS: Basophils # 0.1 10^3/uL (0.0-0.1); Basophils % 0.6 %; Eosinophils # 0.3 10^3/uL (0.0-0.8); Hematocrit 44.2 % (37.0-47.0); Hemoglobin 13.7 g/dL (11.5-15.3); Lymphocytes # 3.6 10^3/uL (0.8-4.8); Lymphocytes % 27.3 %; Mean Corpuscular Volume 90.4 fl (81-99); Mean Platelet Volume 9.4 fL (7.4-10.4); Monocytes # 0.9 10^3/uL (0.2-0.9); Monocytes % 6.7 %; Neutrophils # 8.39 10^3/uL (1.8-7.7); Nucleated Red Blood Cells % 0 %; Platelet Count 340 10^3/cmm (130-400); Red Blood Count 4.89 10^6/uL (4.1-5.3); Red Cell Distribution Width 13.2 % (12.1-15.1); White Blood Count 13.3 10^3/uL (4.0-10.0)
[2020-11-18 20:12] LABS: Bilirubin Urine Neg (Negative); Blood Urine Neg (Negative); Glucose Urine UA Norm (Normal); Ketones Urine Negative (Negative); Leukocyte Esterase Urine Negative (Negative); Nitrate Urine Negative (Negative); Protein Urine Neg (Negative); Specific Gravity, Urine 1.005 (1.005-1.030); Urine Appearance Clear (CLEAR); Urine Color Straw (Yellow); Urobilinogen Urine Norm (Negative); pH Urine 5 (5-7)
[2020-11-18 20:20] LABS: Amphetamines Screen Urine Negative (Negative); Barbiturates Screen Urine Negative (Negative); Benzodiazepines Screen Urine Negative (Negative); Cocaine Screen Urine Negative (Negative); Opiate Screen Urine Negative (Negative); PCP Screen Urine Negative (Negative); THC Screen Urine Negative (Negative)
[2020-11-18 20:45] LABS: Alanine Aminotransferase 17 U/L (0-33); Albumin Level 4.3 g/dL (3.5-5.2); Alkaline Phosphatase 82 IU/L (35-105); Anion Gap 14.9 (5-19); Aspartate Amino Transferase 16 U/L (0-32); Blood Urea Nitrogen 10 mg/dL (6-20); Calcium 9.2 mg/dL (8.5-10.5); Carbon Dioxide 25 mmol/L (22-29); Chloride 101 mmol/L (98-107); Globulin 3.1 g/dL (1.3-4.6); Glomerular Filtration Rate 197.8 mL/min (90-130); Glucose 82 mg/dL (65-115); HCG, Serum Qual Negative (Negative); Osmolality Calculated 282 mOsm/kg (285-295); Potassium 3.9 mmol/L (3.5-5.1); Sodium 137 mmol/L (136-145); Total Bilirubin 0.2 mg/dL (0.15-1.2); Total Protein 7.4 g/dL (6.6-8.7)
[2020-11-18 20:50] LABS: Acetaminophen < 5.0 ug/mL (10-30); Alcohol Level < 10 mg/dL (0-10); Salicylate < 0.3 mg/dL (3-10)
[2020-11-18 23:13] VITALS: BP 116/73; PULSE 76; RESP 18; O2SAT 98
[2020-11-19 01:19] VITALS: BMI 24.0
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
[2020-11-19 06:00] VITALS: BP 99/66; PULSE 96; RESP 18; O2SAT 96
[2020-11-19] MEDS: fluoxetine 20 mg Capsule PO (09:27)
[2020-11-19] MEDS: OLANZapine 10 mg TABLET 20 MG PO ×2 (09:27→17:34)
--- NOTE | 2020-11-19 13:34 | PM.NHP ---
Providers/Chief Complaint Admitting Physician: Giancarlo Nicole MD Chief Complaint: SI HPI NPU History of Present Illness Tracy Robledo is a 25 year old female with a history of intellectual disability, schizophrenia and autistic disorder, now off her medication, who presents with risky, impulsive behavior and auditory hallucination. She was just on the NPU last week, 11/10-11/13/20. The ED note states: HPI narrative: Patient is a 25-year-old female comes to the ED for mental health evaluation. Patient was brought in via EMS. Patient has a past medical history of intellectual disability, schizophrenia and autistic disorder. Patient ran away from home and mother is concerned she is having an episode of acute psychosis. Patient has not been taking her medications and mother told the nursing staff that patient has been talking about hearing the devil talking to her. Patient told me she has been hearing Satan telling her that she needs to run. Patient denies any other medical complaints. Denies any fever, chills, upper respiratory symptoms, abdominal pain, chest pain, nausea/vomiting, bladder or bowel symptoms. Medical decision making narrative: Vitals are stable patient medically cleared for admission to the NPU. Labs are unremarkable. I contacted Dr. Nicole and told about patient case and he agreed to have patient admitted to the NPU. Dr. Vargsa placed the admitting orders. The patient says she is here because, my mom thinks I am psycho. Later she says that she agrees that she needs to be in the hospital. She describes hearing the voice of Kar, who tells her to run. This is a very disturbing experience for her. There are no command hallucinations telling her to harm herself or others. No visual hallucinations. She says her mood is okay, not depressed or worried. She denies suicidal and homicidal ideation. She denies using alcohol, drugs, or cigarettes. Urine drug screen was negative for all substances tested. Psychiatric history: As above. Substance use history: As above. FAMILY HISTORY (per Dr. Hamm note last week): She reports she is adopted, and she has limited memory of her biological family, but she denied any mental health issues on either side of the family that she is aware of but did endorse addiction likely on both sides of the family. She is unaware of any suicide attempts or completions. DEVELOPMENTAL HISTORY (per Dr. Hamm note last week): She denied any known issues with her or delivery, and reports she learned to walk and talk and met her developmental milestones on time, but this is questionable. She does endorse that she did require speech therapy, learning support, emotional support, and special education classes once she entered school and throughout her schooling. PSYCHOSOCIAL HISTORY (per Dr. Hamm note last week): She reports her parents were not together when she was born and that she is the only product of that union. She believes that she knows that she has siblings out there somewhere, but she is not sure how many, and which are attributed to which parent. She reports that she was taken away from her family at eleven months. She denies knowledge of her childhood prior to her adoption. She denies emotional, physical, or sexual abuse, but then seemed unsure about the sexual abuse question. She graduated from high school. She essentially identified being asexual and denied having any real relationships, but then said that she use to have a boyfriend, but it was very short-lived. She has never been , she has never had children, she has never been in the , and she endorses believing in God. 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 She currently livers in the house with her foster mother, a roommate, and her sister she reports, but she seemed somewhat confused as to whether or not that was a biological sibling or not. Legal history: No legal difficulties. Medical history: Denies any significant medical history. Meds NPU Home Medications Medication Instructions Recorded Confirmed Last Taken Type fluoxetine [Prozac] 20 mg PO DAILY 11/09/20 11/19/20 Unknown History fluticasone propionate 1 spray INTRANASAL DAILY 11/09/20 11/19/20 Unknown History olanzapine 20 mg PO BID 11/09/20 11/19/20 Unknown History Invega Sustenna 156 mg IM DIRECTED 30 Days #1 ml 11/13/20 11/19/20 11/11/20 10:00 Rx 156 mg IM aripiprazole 10 mg PO BEDTIME 30 Days #30 tab 11/13/20 11/19/20 Unknown Rx Allergies Allergy/AdvReac Type Severity Reaction Status Date / Time No Known Allergies Allergy Verified 05/08/20 21:10 PFS NPU PFS: Medical History Psychiatric care Mental Status Exam MSE Comments: This is a well-nourished, well-developed, white female, in hospital scrubs with adequate grooming and eye contact. I met with her in her room with the door open. No abnormal movements. She was quite fidgety. Cooperative with exam in no acute distress. Speech was at a regular rate and volume, and very child-like. Mood described as okay; affect congruent. Thought process, fairly organized. Thought content: patient denied any suicidal or homicidal ideation. There were no delusions reported or noted. Patient denied any auditory or visual hallucinations. Attention, concentration, and memory appear intact but were not formally tested. She is alert and oriented times four. Insight and judgment are limited, impulse control limited, intellectual ability is limited to impaired. Vitals/I&O/Wt Last Vital Signs Temp 98.3 F 11/18/20 19:15 Pulse 96 11/19/20 06:00 Resp 18 11/19/20 06:00 BP 99/66 11/19/20 06:00 Pulse Ox 96 11/19/20 06:00 Weight last 48 hrs Weight 63.643 kg Weight 63.643 kg Data NPU : 11/18/20 19:59 11/18/20 19:59 A&P Assessment and plan (1) Intellectual disability: Status: Acute (2) Schizophrenia: Status: Acute Qualifiers: Schizophrenia type: unspecified Qualified Code(s): F20.9 - Schizophrenia, unspecified (3) Autistic disorder: Status: Acute Additional A&P Information This is a 25 year old female with a history of intellectual disability, schizophrenia and autistic disorder, now off her medication, who presents with risky, impulsive behavior and auditory hallucination. She was just on the NPU last week, 11/10-11/13/20. RECOMMENDATION AND PLAN: 1. Continue current medication. 2. Determine the cause of the increase in psychotic symptoms. 3. Continue every 15 minute checks for safety. 4. Encourage individual, group and milieu therapies. 5. Encourage sober living treatment after discharge at the highest level of care to which he is willing to commit. Involuntary Hold Information 96 Hour Hold: 96 Hour Involuntary Admission: No Attestations NPU Medical Necessity Statement*: Psychiatric hospitalization is medically necessary to prevent access to lethal means, to reevaluate medication, and to coordinate a safe discharge. Patient will be in the hospital for over 2 midnights. Likely length of stay is 3 to 5 days. Coding Level of Care Code Acute Social Organization Professor for [facility] Fwd Diagnoses Intellectual disability F79 Schizophrenia F20.9 Schizophrenia type: unspecified Autistic disorder F84.0
[2020-11-19 14:00] VITALS: BP 100/64; PULSE 100; RESP 20; TEMP 36.7; O2SAT 98
[2020-11-19] MEDS: ARIPiprazole 10 mg Tablet PO (21:30)
[2020-11-19 22:00] VITALS: BP 100/64; PULSE 100; RESP 20; TEMP 36.6; O2SAT 98
[2020-11-19] MEDS: hyDROXYzine 25 mg Capsule 50 MG PO (22:31)
[2020-11-19] MEDS: trazodone 50 mg Tablet PO (22:33)
--- NOTE | 2020-11-20 02:12 | PC.NURSE ---
PRN meds, Trazodone 50mg PO & Vistaril 50mg PO given for sleep and anxiety. Upon reassessment medications were effective.
[2020-11-20 06:00] VITALS: BP 102/66; PULSE 89; RESP 16; TEMP 36.4; O2SAT 97
[2020-11-20] MEDS: fluoxetine 20 mg Capsule PO (09:18)
[2020-11-20] MEDS: OLANZapine 10 mg TABLET 20 MG PO ×2 (09:19→19:53)
--- NOTE | 2020-11-20 13:41 | PM.NPN ---
Subjective NPU Subjective: Interval history: The patient says she slept well and her mood is better. However she still is hearing the voice of Satan telling her to run. This is quite upsetting to her and she does not know if she can keep her self safe. No visual hallucinations. No suicidal or homicidal ideation. No medication side effects. Mental Status Exam MSE Comments: This is a well-nourished, well-developed, white female, in hospital scrubs with adequate grooming and eye contact. I met with her in her room with the door open. No abnormal movements. Motorically [place] today. Cooperative with exam in no acute distress. Speech was at a regular rate and volume, and very child-like. Mood described as okay; affect congruent. Thought process, fairly organized. Thought content: patient denied any suicidal or homicidal ideation. There were no delusions reported or noted. Patient says she is still hearing the voice of Satan, which has command hallucinations. No visual hallucinations. Attention, concentration, and memory appear intact but were not formally tested. She is alert and oriented times four. Insight and judgment are limited, impulse control limited, intellectual ability is limited to impaired. Vitals/I&O/Wt Last Vital Signs Temp 97.6 F 11/20/20 06:00 Pulse 89 11/20/20 06:00 Resp 16 11/20/20 06:00 BP 102/66 11/20/20 06:00 Pulse Ox 97 11/20/20 06:00 Weight last 48 hrs Weight 63.643 kg Weight 63.643 kg Data NPU : 11/18/20 19:59 11/18/20 19:59 A&P Assessment and plan (1) Schizophrenia: Status: Acute Qualifiers: Schizophrenia type: unspecified Qualified Code(s): F20.9 - Schizophrenia, unspecified (2) Autistic disorder: Status: Acute (3) Intellectual disability: Status: Acute Additional A&P Information This is a 25 year old female with a history of intellectual disability, schizophrenia and autistic disorder, now off her medication, who presents with risky, impulsive behavior and auditory hallucination. She was just on the NPU last week, 11/10-11/13/20. RECOMMENDATION AND PLAN: 1. Continue current medication. 2. Determine the cause of the increase in psychotic symptoms. 3. Continue every 15 minute checks for safety. 4. Encourage individual, group and milieu therapies. 5. Encourage sober living treatment after discharge at the highest level of care to which he is willing to commit. Involuntary Hold Information 96 Hour Hold: 96 Hour Involuntary Admission: No Attestations NPU Medical Necessity Statement*: Psychiatric hospitalization is medically necessary to prevent access to lethal means, to reevaluate medication, and to coordinate a safe discharge. Patient will be in the hospital for over 2 midnights. Likely length of stay is 2-4 days. Coding Level of Care Code Acute Boring Machine Feeder for [facility] Diagnoses Schizophrenia F20.9 Schizophrenia type: unspecified Autistic disorder F84.0 Intellectual disability F79
[2020-11-20 14:00] VITALS: BP 108/72; PULSE 89; RESP 18; TEMP 36.8; O2SAT 97
[2020-11-20 20:39] VITALS: BP 115/68; PULSE 91; RESP 17; TEMP 36.8; O2SAT 96
[2020-11-20] MEDS: ARIPiprazole 10 mg Tablet PO (21:21)
[2020-11-20] MEDS: trazodone 50 mg Tablet PO (21:21)
--- NOTE | 2020-11-21 03:27 | PC.NURSE ---
Patient was given trazodone for sleep, pt responded well
[2020-11-21 06:00] VITALS: BP 119/67; PULSE 77; RESP 16; TEMP 36.8; O2SAT 96
[2020-11-21] MEDS: OLANZapine 10 mg TABLET 20 MG PO ×2 (08:09→16:58)
[2020-11-21] MEDS: fluoxetine 20 mg Capsule PO (08:09)
[2020-11-21 14:00] VITALS: BP 98/57; PULSE 91; RESP 17; TEMP 36.9; O2SAT 95
--- NOTE | 2020-11-21 16:44 | PM.NPN ---
Subjective NPU Subjective: Interval history: The patient says that the voice of Kar is not getting any better. It had been hoped that it would improve if she got back on her medication. I talked with her about increasing the dose. She thinks that is a good idea. Mood is okay, but she is disturbed by the voices, which tells her to run. She is afraid she is going to act on those commands. No suicidal or homicidal ideation. No medication side effects. Mental Status Exam MSE Comments: This is a well-nourished, well-developed, white female, in hospital scrubs with adequate grooming and eye contact. I met with her in her room with the door open. No abnormal movements. No psychomotor agitation or retardation today. Cooperative with exam. Speech was at a regular rate and volume, and still very child-like. Mood is good; affect is blunted and serious. Thought process, fairly organized. Thought content: patient denied any suicidal or homicidal ideation. There were no delusions reported or noted. Patient says she is still hearing the voice of Kar, which has command hallucinations. No visual hallucinations. Attention, concentration, and memory appear intact but were not formally tested. She is alert and oriented times four. Insight and judgment are limited, impulse control limited, intellectual ability is limited to impaired. Vitals/I&O/Wt Last Vital Signs Temp 98.5 F 11/21/20 14:00 Pulse 91 11/21/20 14:00 Resp 17 11/21/20 14:00 BP 98/57 11/21/20 14:00 Pulse Ox 95 11/21/20 14:00 Data NPU : 11/18/20 19:59 11/18/20 19:59 A&P Assessment and plan (1) Schizophrenia: Status: Acute Qualifiers: Schizophrenia type: unspecified Qualified Code(s): F20.9 - Schizophrenia, unspecified (2) Autistic disorder: Status: Acute (3) Intellectual disability: Status: Acute Additional A&P Information This is a 25 year old female with a history of intellectual disability, schizophrenia and autistic disorder, now off her medication, who presents with risky, impulsive behavior and auditory hallucination. She was just on the NPU last week, 11/10-11/13/20. RECOMMENDATION AND PLAN: 1. Increase Abilify to 15 mg daily. It was hoped that she would improve being back on her medication, but the voice of Kar is the same if not worse. No current side effects. 2. Determine the cause of the increase in psychotic symptoms. 3. Continue every 15 minute checks for safety. 4. Encourage individual, group and milieu therapies. 5. Encourage sober living treatment after discharge at the highest level of care to which he is willing to commit. Involuntary Hold Information 96 Hour Hold: 96 Hour Involuntary Admission: No Attestations NPU Medical Necessity Statement*: Psychiatric hospitalization is medically necessary to prevent access to lethal means, to reevaluate medication, and to coordinate a safe discharge. Patient will be in the hospital for over 2 midnights. Likely length of stay is 2-4 days. Coding Level of Care Code Acute Pay Station Department Manager for [facility] Diagnoses Schizophrenia F20.9 Schizophrenia type: unspecified Autistic disorder F84.0 Intellectual disability F79
[2020-11-21 20:47] VITALS: BP 102/78; PULSE 65; RESP 15; TEMP 36.9; O2SAT 98
[2020-11-21] MEDS: trazodone 50 mg Tablet PO (21:23)
[2020-11-21] MEDS: ARIPiprazole 10 mg Tablet 15 MG PO (21:23)
[2020-11-21] MEDS: hyDROXYzine 25 mg Capsule 50 MG PO (21:23)
[2020-11-22 06:00] VITALS: BP 99/58; PULSE 89; RESP 19; TEMP 36.7; O2SAT 94
[2020-11-22] MEDS: fluoxetine 20 mg Capsule PO (08:39)
[2020-11-22] MEDS: OLANZapine 10 mg TABLET 20 MG PO ×2 (08:39→20:19)
--- NOTE | 2020-11-22 13:17 | PM.NPN ---
Subjective NPU Subjective: Interval history: The patient says that Kar is no longer talking to her, and this is a lot better for her. She says her mood is good. She slept okay without nightmares. She denies auditory visual hallucinations. No suicidal or homicidal ideation. She denies any side effects from the increase of Abilify. She feels that it is helping with everything. We talked about her discharge plans of going to a homeless jail in order for her mother and her to take breaks from each other. We will discussed this plan with the discharge planners tomorrow. Mental Status Exam MSE Comments: This is a well-nourished, well-developed, white female, in hospital scrubs with adequate grooming and eye contact. I met with her in her room with the door open. No abnormal movements. No psychomotor agitation or retardation today. Cooperative with exam. Speech was at a regular rate and volume. Mood is good; affect is blunted and serious. Thought process, fairly organized. Thought content: patient denied any suicidal or homicidal ideation. There were no delusions reported or noted. Patient says she has now stopped hearing the voice of Kar, and she is glad. No visual hallucinations. Attention, concentration, and memory appear intact but were not formally tested. She is alert and oriented times four. Insight and judgment are improving, impulse control is improving, intellectual ability is limited. Vitals/I&O/Wt Last Vital Signs Temp 98.1 F 11/22/20 06:00 Pulse 89 11/22/20 06:00 Resp 19 H 11/22/20 06:00 BP 99/58 11/22/20 06:00 Pulse Ox 94 11/22/20 06:00 Weight last 48 hrs Weight 76.204 kg Data NPU : 11/18/20 19:59 11/18/20 19:59 A&P Assessment and plan (1) Intellectual disability: Status: Acute (2) Schizophrenia: Status: Acute Qualifiers: Schizophrenia type: unspecified Qualified Code(s): F20.9 - Schizophrenia, unspecified (3) Autistic disorder: Status: Acute Additional A&P Information This is a 25 year old female with a history of intellectual disability, schizophrenia and autistic disorder, now off her medication, who presents with risky, impulsive behavior and auditory hallucination. She was just on the NPU last week, 11/10-11/13/20. RECOMMENDATION AND PLAN: 1. Increased Abilify to 15 mg daily. This increase has been helpful. No current side effects. 2. We are exploring the cause of the increase in psychotic symptoms. 3. Continue every 15 minute checks for safety. 4. Encourage individual, group and milieu therapies. 5. Encourage sober living treatment after discharge at the highest level of care to which he is willing to commit. Involuntary Hold Information 96 Hour Hold: 96 Hour Involuntary Admission: No Attestations NPU Medical Necessity Statement*: Psychiatric hospitalization is medically necessary to prevent access to lethal means, to reevaluate medication, and to coordinate a safe discharge. Likely length of stay is 1-3 days. Coding Level of Care Code Acute Workforce Development Vice President for [facility] Diagnoses Intellectual disability F79 Schizophrenia F20.9 Schizophrenia type: unspecified Autistic disorder F84.0
[2020-11-22 14:00] VITALS: BP 109/69; PULSE 90; RESP 16; TEMP 36.9; O2SAT 95
[2020-11-22] MEDS: ARIPiprazole 10 mg Tablet 15 MG PO (20:18)
[2020-11-22 20:59] VITALS: BP 98/62; PULSE 68; RESP 18; TEMP 37.2; O2SAT 98
[2020-11-23 06:00] VITALS: BP 137/82; PULSE 62; RESP 15; TEMP 36.8; O2SAT 95
[2020-11-23] MEDS: fluoxetine 20 mg Capsule PO (09:00)
[2020-11-23] MEDS: OLANZapine 10 mg TABLET 20 MG PO ×2 (09:00→21:21)
[2020-11-23 14:00] VITALS: BP 136/79; PULSE 85; RESP 16; TEMP 36.6; O2SAT 95
--- NOTE | 2020-11-23 15:20 | PM.NPN ---
Subjective NPU Subjective: Interval history: The patient says that the devil is still bothering her, although he is not speaking to her as much. She says that the Abilify is helping much more than the Risperdal used to. She is happy about this. Because the devil is still with her, she said she thought she needed to speak to a commercial loan analyst. I said that we could ask a otr company truck driver to meet with her, and she liked that idea. Mood is still worried because of the devil. No visual hallucinations. No suicidal or homicidal ideations. No medication side effects on the increased dose of Abilify. Mental Status Exam MSE Comments: This is a well-nourished, well-developed, white female, in hospital scrubs with adequate grooming and eye contact. I met with her in her room with the door open. No abnormal movements. No psychomotor agitation or retardation today. Cooperative with exam. Speech was at a regular rate and volume. Mood is worried; affect is brighter than before. Thought process, fairly organized. Thought content: patient denied any suicidal or homicidal ideation. There were no delusions reported or noted. Patient says Satpoly is still present, though she is not hearing his voices much. No visual hallucinations. Attention, concentration, and memory appear intact but were not formally tested. She is alert and oriented times four. Insight and judgment are improving, impulse control is improving, intellectual ability is limited. Vitals/I&O/Wt Last Vital Signs Temp 98.3 F 11/23/20 06:00 Pulse 62 11/23/20 06:00 Resp 15 11/23/20 06:00 BP 137/82 11/23/20 06:00 Pulse Ox 95 11/23/20 06:00 Weight last 48 hrs Weight 76.204 kg Data NPU : 11/18/20 19:59 11/18/20 19:59 A&P Assessment and plan (1) Intellectual disability: Status: Acute (2) Schizophrenia: Status: Acute Qualifiers: Schizophrenia type: unspecified Qualified Code(s): F20.9 - Schizophrenia, unspecified (3) Autistic disorder: Status: Acute Additional A&P Information This is a 25 year old female with a history of intellectual disability, schizophrenia and autistic disorder, now off her medication, who presents with risky, impulsive behavior and auditory hallucination. She was just on the NPU last week, 11/10-11/13/20. RECOMMENDATION AND PLAN: 1. Increased Abilify to 15 mg daily. This increase has been helpful. No current side effects. 2. We are exploring the cause of the increase in psychotic symptoms. 3. Continue every 15 minute checks for safety. 4. Encourage individual, group and milieu therapies. 5. Encourage sober living treatment after discharge at the highest level of care to which he is willing to commit. Involuntary Hold Information 96 Hour Hold: 96 Hour Involuntary Admission: No Attestations NPU Medical Necessity Statement*: Psychiatric hospitalization is medically necessary to prevent access to lethal means, to reevaluate medication, and to coordinate a safe discharge. Likely length of stay is 1-3 days. Coding Level of Care Code Acute Pearl Glue Drier for [facility] Diagnoses Intellectual disability F79 Schizophrenia F20.9 Schizophrenia type: unspecified Autistic disorder F84.0
[2020-11-23] MEDS: ARIPiprazole 10 mg Tablet 15 MG PO (21:20)
[2020-11-23 22:00] VITALS: BP 118/82; PULSE 72; RESP 14; TEMP 36.4; O2SAT 97
[2020-11-24 06:00] VITALS: BP 87/47; PULSE 77; RESP 16; TEMP 37.2; O2SAT 97
[2020-11-24] MEDS: fluoxetine 20 mg Capsule PO (09:05)
[2020-11-24] MEDS: OLANZapine 10 mg TABLET 20 MG PO (09:05)
[2020-11-24 11:22] VITALS: BP 87/47; PULSE 77; RESP 16; TEMP 37.2; O2SAT 97
--- NOTE | 2020-11-24 11:22 | PC.NURSE ---
DISCHARGE MEDICATIONS CALLED INTO [facility], SPOKE TO N[place]HOLE
[2020-11-24 14:00] VITALS: BP 87/47; PULSE 77; RESP 16; TEMP 37.2; O2SAT 97
--- NOTE | 2020-11-24 18:03 | PM.NPN ---
Subjective NPU Subjective: Interval history: The patient was scheduled for discharge today, but we were never able to make contact with the homeless halfway we were hoping she would go to?[facility], here in [place]. She says that the devil is no longer bothering her. No auditory or visual hallucinations. Mood is good. No suicidal or homicidal ideation. She denies medication side effects on the Abilify. Mental Status Exam MSE Comments: This is a well-nourished, well-developed, white female, in hospital scrubs with adequate grooming and eye contact. I met with her in her room with the door open. She was cooperative with the exam. No abnormal movements. No psychomotor agitation or retardation today. Speech was at a regular rate and volume. Mood is improved, euthymic; affect is bright. Thought process, fairly organized. Thought content: patient denied any suicidal or homicidal ideation. There were no delusions reported or noted. Patient says Satan is no longer bothering her. No auditory or visual visual hallucinations. Attention, concentration, and memory appear intact but were not formally tested. She is alert and oriented times four. Insight and judgment are improving, impulse control is improving, intellectual ability is limited. Vitals/I&O/Wt Last Vital Signs Temp 99.0 F 11/24/20 14:00 Pulse 119 H 11/24/20 20:46 Resp 18 11/24/20 20:46 BP 105/71 11/24/20 20:46 Pulse Ox 96 11/24/20 20:46 Data NPU : 11/18/20 19:59 11/18/20 19:59 A&P Assessment and plan (1) Intellectual disability: Status: Chronic (2) Schizophrenia: Status: Chronic Qualifiers: Schizophrenia type: unspecified Qualified Code(s): F20.9 - Schizophrenia, unspecified (3) Autistic disorder: Status: Chronic Additional A&P Information This is a 25 year old female with a history of intellectual disability, schizophrenia and autistic disorder, now off her medication, who presents with risky, impulsive behavior and auditory hallucination. She was just on the NPU last week, 11/10-11/13/20. RECOMMENDATION AND PLAN: 1. Increased Abilify to 15 mg daily. This increase has been helpful. No current side effects. We will begin to taper Zyprexa. 2. It is not clear what caused the increase in psychotic symptoms. But she says the Abilify is more helpful than the Zyprexa. 3. Continue every 15 minute checks for safety. 4. Encourage individual, group and milieu therapies. 5. Encourage sober living treatment after discharge at the highest level of care to which she is willing to commit. Involuntary Hold Information 96 Hour Hold: 96 Hour Involuntary Admission: No Attestations NPU Medical Necessity Statement*: We are planning on discharging the patient today. Psychiatric hospitalization is medically necessary, because without adequate housing, the patient is at risk of harming herself. Anticipate discharge tomorrow. Coding Level of Care Code Acute Animal Care Supervisor for [facility] Diagnoses Intellectual disability F79 Schizophrenia F20.9 Schizophrenia type: unspecified Autistic disorder F84.0
[2020-11-24] MEDS: OLANZapine 5 mg ODT PO (20:02)
[2020-11-24] MEDS: ARIPiprazole 10 mg Tablet 15 MG PO (20:02)
[2020-11-24 20:46] VITALS: BP 105/71; PULSE 119; RESP 18; O2SAT 96
--- NOTE | 2020-11-24 23:51 | PC.NURSE ---
PM Assessment pt denies pain, denies AH/VH. Denies SI/HI. Pt reports concerns about going to the homeless halfway. Pt's foster mother refuses to take her back home.
[2020-11-25 06:00] VITALS: BP 121/78; PULSE 79; RESP 17; TEMP 36.7; O2SAT 98
[2020-11-25] MEDS: fluoxetine 20 mg Capsule PO (09:40)
--- NOTE | 2020-11-25 11:03 | P.DS_ITS ---
Diagnoses at Discharge Discharge Diagnosis (1) Intellectual disability: Status: Chronic (2) Schizophrenia: Status: Chronic Qualifiers: Schizophrenia type: unspecified Qualified Code(s): F20.9 - Schizophrenia, unspecified (3) Autistic disorder: Status: Chronic Reason for Visit Reason for Visit: SI Brief History: Tracy Robledo is a 25 year old female with a history of intellectual disability, schizophrenia and autistic disorder, now off her medication, who presents with risky, impulsive behavior and auditory hallucination. She was just on the NPU last week, 11/10-11/13/20. The ED note states: HPI narrative: Patient is a 25-year-old female comes to the ED for mental health evaluation. Patient was brought in via EMS. Patient has a past medical history of intellectual disability, schizophrenia and autistic disorder. Patient ran away from home and mother is concerned she is having an episode of acute psychosis. Patient has not been taking her medications and mother told the nursing staff that patient has been talking about hearing the devil talking to her. Patient told me she has been hearing Satan telling her that she needs to run. Patient denies any other medical complaints. Denies any fever, chills, upper respiratory symptoms, abdominal pain, chest pain, nausea/vomiting, bladder or bowel symptoms. Medical decision making narrative: Vitals are stable patient medically cleared for admission to the NPU. Labs are unremarkable. I contacted Dr. Nicole and told about patient case and he agreed to have patient admitted to the NPU. Dr. Vargas placed the admitting orders. The patient says she is here because, my mom thinks I am psycho. Later she says that she agrees that she needs to be in the hospital. She describes hearing the voice of Kar, who tells her to run. This is a very disturbing experience for her. There are no command hallucinations telling her to harm herself or others. No visual hallucinations. She says her mood is okay, not depressed or worried. She denies suicidal and homicidal ideation. She denies using alcohol, drugs, or cigarettes. Urine drug screen was negative for all substances tested. Psychiatric history: As above. Substance use history: As above. FAMILY HISTORY (per Dr. Hamm note last week): She reports she is adopted, and she has limited memory of her biological family, but she denied any mental health issues on either side of the family that she is aware of but did endorse addiction likely on both sides of the family. She is unaware of any suicide attempts or completions. DEVELOPMENTAL HISTORY (per Dr. Hamm note last week): She denied any known issues with her or delivery, and reports she learned to walk and talk and met her developmental milestones on time, but this is questionable. She does endorse that she did require speech therapy, learning support, emotional support, and special education classes once she entered school and throughout her schooling. PSYCHOSOCIAL HISTORY (per Dr. Hamm note last week): She reports her parents were not together when she was born and that she is the only product of that union. She believes that she knows that she has siblings out there somewhere, but she is not sure how many, and which are attributed to which parent. She reports that she was taken away from her family at eleven months. She denies knowledge of her childhood prior to her adoption. She denies emotional, physical, or sexual abuse, but then seemed unsure about the sexual abuse question. She graduated from high school. She essentially identified being asexual and denied having any real relationships, but then said that she use to have a boyfriend, but it was very short-lived. She has never been , she has never had children, she has never been in the , and she endorses believing in God. 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 She currently livers in the house with her foster mother, a roommate, and her sister she reports, but she seemed somewhat confused as to whether or not that was a biological sibling or not. Legal history: No legal difficulties. Medical history: Denies any significant medical history. Hospital Course Hospital Course The patient was admitted to the neuropsychiatric unit for definitive treatment of these issues. On the unit she slowly acclimated to the individual, group and milieu therapies. There were some mild psychotic symptoms present initially which resolved with the medication being switched to Abilify and titrated up to 15 mg daily. We began to taper Zyprexa to 20 mg at bedtime, down from 20 mg twice daily. She was receptive to treatment team recommendations and showed modest improvement and was able to contract for safety prior to discharge. During the hospitalization, patient had routine laboratory studies which were within normal limits except for few outliers. Additionally there was a general medical evaluation which was also within normal limits and revealed no new acute processes. Discharge Summary: At the time of discharge, psychosis and lethality were denied. Mood and anxiety were well managed. Patient endorsed a plan to avoid all drugs of abuse and follow-up with the aftercare recommendations of the treatment team. Patient was evaluated and deemed to be absent credible lethality, and had achieved the maximum benefit from an inpatient hospitalization, so was discharged. The recommendation was for her to take Zyprexa 20 mg at bedtime for 7 days, then 10 mg at bedtime for 7 days, then stop it altogether. She is continuing on Abilify 15 mg daily and Prozac 20 mg daily. Since Prozac can cause an increase in Abilify levels, 15 mg is the probably the highest dose of Abilify she should take. Involuntary Hold Information 96 Hour Hold: 96 Hour Involuntary Admission: No Mental Status Exam MSE Comments: This is a well-nourished, well-developed, white female, in hospital scrubs with adequate grooming and eye contact. I met with her in her room with the door open. She was cooperative with the exam. No abnormal movements. No psychomotor agitation or retardation today. Speech was at a regular rate and volume. Mood is improved, euthymic; affect is bright. Thought process, fairly organized. Thought content: patient denied any suicidal or homicidal ideation. There were no delusions reported or noted. Patient says Kar is no longer bothering her. No auditory or visual visual hallucinations. Attention, concentration, and memory appear intact but were not formally tested. She is alert and oriented times four. Insight and judgment are improving, impulse control is improving, intellectual ability is limited. Discharge Data Vitals: Last Vital Signs Temp 99.0 F 11/24/20 06:00 Pulse 77 11/24/20 06:00 Resp 16 11/24/20 06:00 BP 87/47 11/24/20 06:00 Pulse Ox 97 11/24/20 06:00 Discharge Plan Discharge Patient Disposition: Home Condition: Stable Prescriptions: New aripiprazole 10 mg Tablet 15 mg PO BEDTIME 30 Days Qty: 30 RF: 0 fluoxetine 20 mg Capsule 20 mg PO DAILY 30 Days Qty: 30 RF: 0 olanzapine 10 mg Tablet 20 mg PO 0900,2100 14 Days Qty: 42 RF: 0 Continued fluticasone propionate 50 mcg/actuation spray,suspension 1 spray INTRANASAL DAILY RF: 0 Invega Sustenna 156 mg/mL syringe 156 mg IM DIRECTED 30 Days Qty: 1 RF: 1 Discontinued fluoxetine [Prozac] 20 mg capsule 20 mg PO DAILY RF: 0 olanzapine 10 mg tablet 20 mg PO BID RF: 0 aripiprazole 10 mg Tablet 10 mg PO BEDTIME 30 Days Qty: 30 RF: 1 Discharge Orders: Discharge Order (Routine); Ordered 11/25/20 Ordered By: Giancarlo Nicole Referrals: [facility] [Outside] (Monday and 730a-300p (go early) for initial interview) Discharge Diet: Usual diet Discharge Activity: Resume usual activity Patient Instructions: Fluoxetine (By mouth), Olanzapine (By mouth), Aripiprazole (By mouth), Opioid Safety Activity Restrictions/Additional Instructions: Zyprexa/olanzapine - take two of the 10 mg tabs at bedtime for 7 days - then take one of the 10 mg tabs at bedtime for 7 days - then don't take any more of this medicine Discharge Attestations NPU Time Spent in Discharge Care*: less than 30 min Specific Discharge Activities: Specific discharge activities: educating patient, discussing with mattress spring encaser/social workers/dc planners, documenting/other paperwork and evaluating patient/reviewing data Status at Discharge: Cognitive status at discharge: mildly impaired cognition , Behavioral status at discharge: cooperative , Functional status at discharge: independent ambulation Overall status at discharge: patient is back to baseline Coding Level of Care Code Acute [facility] DC note Diagnoses Intellectual disability F79 Schizophrenia F20.9 Schizophrenia type: unspecified Autistic disorder F84.0
[2020-11-25 14:00] VITALS: BP 77/53; PULSE 100; RESP 16; TEMP 36.9; O2SAT 98
[2020-11-25 14:41] VITALS: BP 77/53; PULSE 100; RESP 16; TEMP 36.9; O2SAT 98
== END 2020-11-25 16:01 | disposition home or self-care (01) | DRG 885 ==
LOC: ER 19:46 → NP 11-20 06:53
PROVIDERS: Admitting Provider Psychiatry & Neurology Child & Adolescent Psychiatry; Emergency Provider Physician Assistant; Visit Provider Psychiatry & Neurology Child & Adolescent Psychiatry
DX: F20.9 Schizophrenia, unspecified (principal); F79 Unspecified intellectual disabilities; F84.0 Autistic disorder; Z91.14 Patient's other noncompliance with medication regimen
CPT/HCPCS: 36415; 80053; 80306; 80307; 81003; 84703; 85025; 97150; 97165

== ENCOUNTER 2020-11-25 16:55 | Emergency (ER) | payer MEDICAID, SELFPAY ==
[2020-11-25 17:10] VITALS: BP 116/73; PULSE 111; RESP 18; TEMP 36.6; O2SAT 97; BMI 27.4
--- NOTE | 2020-11-25 17:19 | W.ED.PSYCH ---
HPI - Psych General: Chief Complaint: Psychiatric Symptoms Stated Complaint: Psychiatric, sent by NPU Time Seen by Provider: 11/25/20 17:19 History of Present Illness: HPI Narrative: 25-year-old female comes in today for being recently discharged from the MPU. Patient was taken to the [facility] but they could not receive the patient due to her intellectual disability. Patient was brought back to the emergency department for assistance with placement. Patient states that she has no place to go. Patient responds appropriately to questioning. Patient does have a history of intellectual disability, schizophrenia, and autistic disorder. Review of patient's records it is noted that her parents live and looking with surgery. We reached out to the patient's mother who agreed for patient to come home. We will contact Medicaid for a transport home. Review of Systems General: Reports: 10 or more systems reviewed and unremarkable except in HPI and below PFSH ED PFSH: Medical History Psychiatric care Female Reproductive History: Date of last menstrual period: 11/04/20 Physical Exam Const: COMMON NORMALS: no acute distress and patient oriented x3 GENERAL APPEARANCE: cooperative HENMT: COMMON NORMALS: normocephalic and Normal external nose present HEAD & SCALP: normal to inspection and normocephalic NOSE: Normal external nose present Eye: GENERAL EYE: appearance normal, both eyes and all related structures Neck/C-Spine: COMMON NORMALS: full ROM Lymph: LYMPHATIC: no lymphadenopathy noted Chest: COMMONS NORMALS: normal inspection of the chest Resp: COMMON NORMALS: normal respiratory effort EFFORT & INSPECTION: Yes able to speak in complete sentences Cardio: COMMON NORMALS: regular rate and regular rhythm RATE: regular rate RHYTHM: regular rhythm GI: COMMON NORMALS: non-tender Extremity: COMMON NORMALS: normal to inspection Neuro: COMMON NORMALS: patient oriented x3 and moves all extremities Psych: COMMON NORMALS: mental status grossly normal and cooperative THOUGHT CONTENT: No Suicidality present and No Homicidality present INSIGHT: Fair insight present (Psych) JUDGEMENT: Fair judgement present (Psych) Skin: COMMON NORMALS: no rashes or lesions noted GENERAL SKIN EXAM: no rashes or lesions noted Course Vital Signs: Vital signs: Vital Signs Temperature 97.9 F 11/25/20 17:10 Pulse Rate 111 H 11/25/20 17:10 Respiratory Rate 18 11/25/20 17:10 Blood Pressure 116/73 11/25/20 17:10 Pulse Oximetry 97 11/25/20 17:10 MDM - Psych MDM Narrative: Medical decision making narrative: Patient was brought to the emergency room due to not having a room to stay after being discharged from NPU. She was transported to [facility] out reach but they could not room her due to her intellectual disability. We contacted patient's mother and [facility] and she agreed for patient to be transported to their home. Medicaid transport was then contacted for patient to be transported home. Patient agreed to plan. Discharge Plan Discharge Patient Disposition: Home Clinical Impression: Homelessness, Intellectual disability Condition: Stable Prescriptions: No Action fluticasone propionate 50 mcg/actuation spray,suspension 1 spray INTRANASAL DAILY RF: 0 Invega Sustenna 156 mg/mL syringe 156 mg IM DIRECTED 30 Days Qty: 1 RF: 1 aripiprazole 10 mg Tablet 15 mg PO BEDTIME 30 Days Qty: 30 RF: 0 fluoxetine 20 mg Capsule 20 mg PO DAILY 30 Days Qty: 30 RF: 0 olanzapine 10 mg Tablet 20 mg PO 0900,2100 14 Days Qty: 42 RF: 0 Discharge Orders: Discharge ED (Routine); Ordered 11/25/20 Ordered By: Ruben Espinosa Discharge Diet: Usual diet Discharge Activity: Increase activity as tolerated Patient Instructions: Opioid Safety Activity Restrictions/Additional Instructions: I would recommend that you discuss with your parents possible placement to a fpc home for adults like yourself. Continue with your routine medications. Follow-up with primary care as needed. Return to the ER for new concerns. Coding Level of Care Code ED [employer] Super[employer] for [facility] [facility] Exam Comprehensive
== END 2020-11-25 17:47 | disposition home or self-care (01) ==
PROVIDERS: Emergency Provider Nurse Practitioner Family
DX: F79 Unspecified intellectual disabilities (principal); Z59.00 Homelessness unspecified
CPT/HCPCS: 99282